=== PATIENT | female | born 1990 | race Two or more races ===

== ENCOUNTER 2025-04-01 15:35 | Outpatient (CLI) | payer BC, SELFPAY ==
[2025-04-01 20:45] LABS: Bacterial Vaginosis* Negative (Negative); Candida glab/krus NOT DETECTED (No Detected)
[2025-04-01 21:16] LABS: Chlamydia DNA Amplified* NOT DETECTED (No Detected); GC DNA Amplified* NOT DETECTED (No Detected)
== END 2025-04-01 15:36 | disposition home or self-care (01) ==
PROVIDERS: Visit Provider Registered Nurse
DX: N89.8 Other specified noninflammatory disorders of vagina (principal)
CPT/HCPCS: 81513; 87481; 87491; 87591; 87661

== ENCOUNTER 2025-04-27 16:38 | Outpatient (CLI) | payer BC, SELFPAY ==
--- NOTE | 2025-04-27 16:45 | CRLHL7_ITS ---
For Patients: As a result of the Century Cures Act, medical imaging exams and procedure reports are released immediately into your electronic medical record. You may view this report before your referring provider. If you have questions, please contact your health care provider. CLINICAL HISTORY: pelvic pain, infertility, dyspareunia COMPARISON: None. TECHNIQUE: 2D spain-scale ultrasound. In addition, color Doppler and spectral Doppler analysis was performed of the pelvis using a transabdominal and transvaginal approach. Transvaginal imaging performed to better visualize the endometrial stripe and ovaries. FINDINGS: The myometrium has a normal uniform echotexture. The uterus measures 9.5 x 4.4 x 5.3 cm. The endometrial lining appears normal and measures 4.6 mm in thickness. The right ovary measures 2.5 x 1.7 x 2.4 cm in size and the left ovary measures 3.4 x 2.4 x 2.7 cm. The ovaries demonstrate normal arterial and venous blood flow on color Doppler and spectral Doppler analysis. There are no suspicious fluid collections within the cul-de-sac. IMPRESSION: Normal pelvic ultrasound. Dictated by Rick Moffett MD @ 04/28/2025 8:30:41 AM (Electronically Signed)
== END 2025-04-27 16:39 | disposition home or self-care (01) ==
LOC: US 16:40
PROVIDERS: Visit Provider Registered Nurse
DX: R10.20 Pelvic and perineal pain unspecified side (principal)
CPT/HCPCS: 76830; 76856; 93976